=== PATIENT | male | born 1955 | race Caucasian/White ===

== ENCOUNTER → 2016-08-19 | Outpatient (CLI) | payer MEDICARE ==
[~2016-08-19] MED LIST: AMLO10TA2 PO; ASP81CT; ASPI-586 PO; ASPIRIN 325MG; ATOR20TA66 PO; ATOR40TA; ATR20T; CALC-250 PO; CALC-938 PO; DARVOCET N; FEBU40TA PO; FERR-84 PO; FLAX100032 PO; GLBR5T; HCT25T; INSU100I29 SQ; INSU100V SQ; LOTREL 10/40; METO-274 PO; MTF500TCR; NF-LISIN40; NF-MET200T PO; OLME20TA5; TAMS0.4C98 PO; TORS100T4 PO; TRS20T; [UNRECOGNIZED DRUG - OTHER]
--- NOTE | 2016-08-22 08:42 | ECHOCARDIOGRAPHY REPORT ---
PROCEDURE PHYSICIAN: CATHIE HAYS DATE OF PROCEDURE: 08/19/2016 TWO DIMENSIONAL ECHOCARDIOGRAM REPORT PRIMARY PHYSICIAN: OTHER PHYSICIAN: REFERRING PHYSICIAN: Dr. Jackie Bobby ORDERING PHYSICIAN: INDICATION FOR THE PROCEDURE: 1. Coronary artery disease. 2. Hypertension. MEASUREMENTS DERIVED VALUES LV DIAMETER (LAX) NORMALS NORMALS Diastolic 5.5 (3.6-5.2) Eject. Fract. 55% (60%+/-6%) Systolic (2.3-3.9) Diastolic Vol. % Shortening (0.22-0.42) Systolic Vol. Aortic Root IVS THICKNESS Diastolic 1.3 (0.6-1.1) LVPW THICKNESS Diastolic 1.4 (0.6-1.1) LA DIAMETER Systolic 4.3 (2.1-3.7) FINDINGS: 1. Technically difficult study. 2. The left the left ventricle is prominent. Moderate left ventricular hypertrophy was noted diffusely. Endocardium was not well visualized in all segments. Overall systolic function appeared to be preserved with estimated ejection fraction 55%. Diastolic dysfunction is suggested by Doppler. 3. The left atrium is mildly dilated. No clot or thrombus were seen within the left atrium. 4. The right atrium and right ventricle are normal in size. No clot or thrombus were seen within the right side. 5. 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 No mitral valve prolapse. No mitral valve stenosis. 6. Aortic valve leaflets were not well visualized. There is no significant aortic valve stenosis or regurgitation noted. 7. Tricuspid valve is normal in morphology with mild tricuspid regurgitation noted by color Doppler flow. Doppler across tricuspid valve estimated pulmonary artery pressure of 9+ right atrial pressure. 8. Pulmonic valve is functioning normally. 9. No pericardial effusion. IN CONCLUSION: 1. Moderate left ventricular hypertrophy noted diffusely, prominent left ventricle, endocardium was not well visualized in all segments. Overall systolic function appeared to be preserved with estimated ejection fraction 55%. 2. Diastolic dysfunction is suggested by Doppler. 3. Mildly dilated left atrium. 4. Mild mitral regurgitation. Mild tricuspid regurgitation. 5. Estimated pulmonary artery pressure of 15 to 20 mmHg. Job ID: [id number] Dictated Date: 08/21/2016 14:30:33 Bow Maker Production Date: 08/22/2016 08:36:32 / aamir
== END ==
LOC: CARD 13:55
PROVIDERS: ATTEND Physician Assistant
DX: I25.10 Atherosclerotic heart disease of native coronary artery without angina pectoris (principal); I50.30 Unspecified diastolic (congestive) heart failure; I10 Essential (primary) hypertension; E78.2 Mixed hyperlipidemia
CPT/HCPCS: 93306

== ENCOUNTER 2016-09-18 10:30 | Outpatient (CLI) | payer MEDICARE ==
[~2016-09-18] VITALS: Ht 167.6 cm; Wt 133.4 kg
--- OUTSIDE RECORDS SUMMARY | 2016-09-18 10:34 | XMS REPORT | Continuity of Care Document ---
Author Author [facility] Address Unknown Phone Unavailable Allergies Active Description Code Type Severity Reaction Onset Reported/Identified Relationship to Patient Clinical Status Yes Penicillins [id number] Drug Allergy Unknown HIVES 07/11/2008 Yes Penicillins Drug Allergy N/A N/A 10/12/2008 Yes Penicillins Drug Allergy 10/12/2008 Yes Actos Drug Allergy N/A N/A 08/13/2009 Yes Actos Drug Allergy 08/13/2009 Medications Problems Date Dx Coded Attending Type Code Diagnosis Diagnosed By 10/12/2008 ANKIT WEN APRN S 250.00 DIABETES II CONTROLLED 10/12/2008 ANKIT WEN APRN S 272.4 HYPERLIPIDEMIA UNSPECIFIED 10/12/2008 OSWALDO WEN APRNNDA S 285.9 ANEMIA UNSPECIFIED 10/12/2008 ELTON WEN APRNA S 401.1 HYPERTENSION, BENIGN ESSENTIAL 10/12/2008 ELTON WEN APRNA S 782.3 EDEMA 10/12/2008 MICHAEL DO, MARYAM K 250.00 DIABETES II CONTROLLED 10/12/2008 MICHAEL DO, MARYAM K 272.4 HYPERLIPIDEMIA UNSPECIFIED 10/12/2008 MICHAEL DO, MARYAM K 285.9 ANEMIA UNSPECIFIED 10/12/2008 MICHAEL DO, MARYAM K 401.1 HYPERTENSION, BENIGN ESSENTIAL 10/12/2008 MICHAEL DO, MARYAM K 782.3 EDEMA 10/12/2008 RAJOTTE SCREW CUTTER, COLEEN A 250.00 DIABETES II CONTROLLED 10/12/2008 RAJOTTE SCREW CUTTER, COLEEN A 272.4 HYPERLIPIDEMIA UNSPECIFIED 10/12/2008 RAJOTTE SCREW CUTTER, COLEEN A 285.9 ANEMIA UNSPECIFIED 10/12/2008 RAJOTTE SCREW CUTTER, COLEEN A 401.1 HYPERTENSION, BENIGN ESSENTIAL 10/12/2008 RAJOTTE SCREW CUTTER, COLEEN A 782.3 EDEMA 12/26/2008 OSWALDO WEN APRNNDA S 401.9 HYPERTENSION, UNSPECIFIED ESSENTIAL 12/26/2008 LUTHER MICHAEL DOA K 401.9 HYPERTENSION, UNSPECIFIED ESSENTIAL 12/26/2008 MAURICE FIERRO APRNYL A 401.9 HYPERTENSION, UNSPECIFIED ESSENTIAL 08/13/2009 BEHZAD TAN, ANKIT S 274.0 GOUT 08/13/2009 BEHZADHANS TAN, ANKIT S 585.9 KIDNEY DISEASE CHRONIC 08/13/2009 LUTHER MICHAEL DOA K 274.0 GOUT 08/13/2009 LUTHER MICHAEL DOA K 585.9 KIDNEY DISEASE CHRONIC 08/13/2009 MAURICE FIERRO APRNYL A 274.0 GOUT 08/13/2009 VADIM ROUSSEAU, COLEEN A 585.9 KIDNEY DISEASE CHRONIC 08/20/2009 BEHZADHANS TAYandy ANKIT S 250.90 DIABETES MELLITUS TYPE II WITH COMPLICATION 08/20/2009 ALEC WAGONER, MARYAM K 250.90 DIABETES MELLITUS TYPE II WITH COMPLICATION 08/20/2009 VADIM ROUSSEAU, COLEEN A 250.90 DIABETES MELLITUS TYPE II WITH COMPLICATION 05/02/2012 BEHZAD SCREW CUTTEROSWALDO KebedeNDA S V04.81 FLU DX (3 YRS AND ABOVE, IM) 05/02/2012 ALEC WAGONER MARYAM K V04.81 FLU DX (3 YRS AND ABOVE, IM) 05/02/2012 AVDIM ROUSSEAU COLEEN A V04.81 FLU DX (3 YRS AND ABOVE, IM) 06/15/2014 MARYAM MICHAEL DO K V05.8 ZOSTAVAX DX 06/15/2014 VADIM TAYandy COLEEN A V05.8 ZOSTAVAX DX 07/03/2014 VADIM TACOLEEN Kebede A V03.82 PCV-13 (PREVNAR) DX 06/14/2015 Ot 414.00 06/14/2015 Ot 428.0 06/14/2015 Ot 414.00 06/14/2015 Ot 428.0 06/14/2015 TERRENCE CRAWFORD Ot 272.4 06/14/2015 TERRENCE CRAWFORD Ot 401.9 06/14/2015 TERRENCE CRAWFORD Ot 414.01 06/14/2015 TERRENCE CRAWFORD Ot 250.00 06/14/2015 TERRENCE CRAWFORD Ot 272.4 06/14/2015 TERRENCE CRAWFORD Ot 278.01 06/14/2015 TERRENCE CRAWFORD Ot 327.23 06/14/2015 TERRENCE CRAWFORD Ot 401.9 06/14/2015 TERRENCE CRAWFORD Ot 414.00 06/14/2015 TERRENCE CRAWFORD Ot 424.0 06/14/2015 MARY BURR, MARK Duron Ot Z01.818 06/14/2015 MARY BURR, MARK Duron Ot Z12.11 06/14/2015 MARY BURR, MARK Duron Ot Z80.0 06/14/2015 MARY BURR, MARK Duron Ot D12.3 BENIGN NEOPLASM OF TRANSVERSE COLON 06/14/2015 MARY BURR, MARK Duron Ot I12.0 HYP CHR KIDNEY DISEASE W STAGE 5 CHR KID 06/14/2015 MARY BURR, MARK Duron Ot K57.92 DVTRCLI OF INTEST, PART UNSP, W/O PERF O 06/14/2015 MARY BURR, MARK Duron Ot N18.5 CHRONIC KIDNEY DISEASE, STAGE 5 06/14/2015 MARY BURR, MARK Duron Ot Z12.11 ENCOUNTER FOR SCREENING FOR MALIGNANT NE 06/14/2015 MARY BURR, MARK Duron Ot Z80.0 FAMILY HISTORY OF MALIGNANT NEOPLASM OF 07/29/2016 TERRENCE CRAWFORD Ot 272.4 HYPERLIPIDEMIA NEC/NOS 07/29/2016 TERRENCE CRAWFORD Ot 401.9 HYPERTENSION NOS 07/29/2016 TERRENCE CRAWFORD Ot 414.01 CORONARY ATHEROSCLEROSIS OF [place] CORON 07/29/2016 TERRENCE CRAWFORD Ot 250.00 DIAB FLY WO COMPL, TYPE II OR UNSPEC TY 07/29/2016 TERRENCE CRAWFORD Ot 272.4 HYPERLIPIDEMIA NEC/NOS 07/29/2016 TERRENCE CRAWFORD Ot 278.01 MORBID OBESITY 07/29/2016 TERRENCE CRAWFORD Ot 327.23 OBSTRUCTIVE SLEEP APNEA (ADULT ) (PEDIATR 07/29/2016 TERRENCE CRAWFORD Ot 401.9 HYPERTENSION NOS 07/29/2016 TERRENCE CRAWFORD Ot 414.00 CORON ATHEROSCLER NOS TYPE VESSEL, NATIV 07/29/2016 TERRENCE CRAWFORD Ot 424.0 MITRAL VALVE DISORDER 07/29/2016 MARK HERNANDEZ MD Ot Z01.818 ENCOUNTER FOR OTHER PREPROCEDURAL EXAMIN 07/29/2016 MARK HERNANDEZ MD Ot Z12.11 ENCOUNTER FOR SCREENING FOR MALIGNANT NE 07/29/2016 MARK HERNANDEZ MD Ot Z80.0 FAMILY HISTORY OF MALIGNANT NEOPLASM OF 07/31/2016 BENNY NORMAN MD Ot M53.3 SACROCOCCYGEAL DISORDERS, NOT ELSEWHERE 08/20/2016 TERRENCE CRAWFORD Ot E78.2 MIXED HYPERLIPIDEMIA 08/20/2016 TERRENCE CRAWFORD Ot I10 ESSENTIAL (PRIMARY) HYPERTENSION 08/20/2016 TERRENCE CRAWFORD Ot I25.10 ATHSCL HEART DISEASE OF [place] CORONARY 08/20/2016 TERRENCE CRAWFORD Ot I50.30 UNSPECIFIED DIASTOLIC ( CONGESTIVE) HEART 09/11/2016 TERRENCE CRAWFORD Ot E78.2 MIXED HYPERLIPIDEMIA 09/11/2016 TERRENCE CRAWFORD Ot I10 ESSENTIAL (PRIMARY) HYPERTENSION 09/11/2016 TERRENCE CRAWFORD Ot I25.10 ATHSCL HEART DISEASE OF [place] CORONARY 09/11/2016 TERRENCE CRAWFORD Ot I50.30 UNSPECIFIED DIASTOLIC ( CONGESTIVE) HEART 09/16/2016 TERRENCE CRAWFORD Ot E78.2 MIXED HYPERLIPIDEMIA 09/16/2016 TERRENCE CRAWFORD Ot I10 ESSENTIAL (PRIMARY) HYPERTENSION 09/16/2016 TERRENCE CRAWFORD Ot I25.10 ATHSCL HEART DISEASE OF [place] CORONARY 09/16/2016 TERRENCE CRAWFORD Ot I50.30 UNSPECIFIED DIASTOLIC ( CONGESTIVE) HEART Procedures Results Encounters ACCT No. Visit Date/Time Discharge Status Pt. Type Provider Facility Loc./Unit Complaint [id number] 07/03/2014 13:48:00 07/03/2014 23: 59:59 CLS Outpatient COLEEN FIERRO APRN [id number] 06/15/2014 11:17:00 06/15/2014 23: 59:59 CLS Outpatient MARYAM MICHAEL DO [id number] 05/02/2012 17:01:00 05/02/2012 23: 59:59 CLS Outpatient ANKIT WEN APRN
[2016-09-18] MEDS ORDERED: BUPIVACAINE 0.5% 30 ML (SENSORCAINE) VIAL ONE (10:51)
[2016-09-18] MEDS ORDERED: LIDOCAINE 1% INJ 20 ML (XYLOCAINE) VIAL ONE (10:51)
[2016-09-18] MEDS ORDERED: TRIAMCINOLONE ACET (KENALOG-40) 40 MG/ML 1 ML VIAL ONE (10:51)
[2016-09-18 10:54] VITALS: BP 139/80
[2016-09-18 11:37] VITALS: BP 154/100
--- NOTE | 2016-09-18 14:17 | Pain Medicine-Procedure ---
Procedure Pre-Op/Post-Op Diagnosis Diagnosis: spondylosis without myelopathy, lumbar Indications for Operation Low back pain Attending Surgeon Malia Procedure Date of Service: Sep 18, 2016 PROCEDURE: Bilateral lumbar medial branch block at L3,L4, L5 and sacral ala under fluoroscopic guidance. PROCEDURE DETAILS: After obtaining an informed consent from the patient, the patient's chart was reviewed. The patient was brought to the procedure room and placed in a prone position. The back was prepped with antiseptic solution, and under fluoroscopic guidance the sacral ala was identified bilaterally. 0.5 cc of 1% Lidocaine to anesthetize the skin. Two 22 gauge 3.5 inch spinal needles were inserted under fluoroscopic guidance until it got in touch with the bone at the sacral ala bilaterally. Then under right oblique fluoroscopy, the junction of the superior articular process and transverse process on the right at L3, L4, and L5 was identified. 0.5 cc of 1% Lidocaine was used to anesthetize the skin. A 22 gauge 3.5 inch spinal needle was inserted through the skin under fluoroscopic guidance until it came in touch with the bone at the junction between the superior articular process and transverse process at each level. The exact steps were repeated for the left side. After needle aspiration,80 mg of kenalog total was injected in equal alliquots followed by 0.5 cc of 0.5% bupivacaine at each. The patient tolerated the procedure well. The needles were flushed and removed, and a Band-Aide was applied. Complications None BENNY NORMAN MD Sep 18, 2016 2:17 pm
== END 2016-09-18 11:38 | disposition home or self-care (01) ==
LOC: CARD 10:30
PROVIDERS: ATTEND Pain Medicine Pain Medicine
DX: M47.816 Spondylosis without myelopathy or radiculopathy, lumbar region (principal); M53.3 Sacrococcygeal disorders, not elsewhere classified
CPT/HCPCS: 64493; 64494; 64495

== ENCOUNTER 2016-10-02 11:01 | Outpatient (CLI) | payer MEDICARE ==
[~2016-10-02] VITALS: Ht 167.6 cm; Wt 134.3 kg
--- OUTSIDE RECORDS SUMMARY | 2016-10-02 11:05 | XMS REPORT | Continuity of Care Document ---
Author Author [facility] Address Unknown Phone Unavailable Allergies Active Description Code Type Severity Reaction Onset Reported/Identified Relationship to Patient Clinical Status Yes Penicillins [id number] Drug Allergy Unknown HIVES 07/11/2008 Yes Penicillins [...] DO, MARYAM K 782.3 EDEMA 10/12/2008 RAJOTTE VP PUBLIC RELATIONS, COLEEN A 250.00 DIABETES II CONTROLLED 10/12/2008 RAJOTTE VP PUBLIC RELATIONS, COLEEN A 272.4 HYPERLIPIDEMIA UNSPECIFIED 10/12/2008 RAJOTTE VP PUBLIC RELATIONS, COLEEN A 285.9 ANEMIA UNSPECIFIED 10/12/2008 RAJOTTE VP PUBLIC RELATIONS, COLEEN A 401.1 HYPERTENSION, BENIGN ESSENTIAL 10/12/2008 RAJOTTE VP PUBLIC RELATIONS, COLEEN A 782.3 EDEMA 12/26/2008 OSWALDO WEN [...] MELLITUS TYPE II WITH COMPLICATION 05/02/2012 BEHZAD VP PUBLIC RELATIONSOSWALDO KebedeNDA S V04.81 FLU DX (3 YRS AND ABOVE, IM) 05/02/2012 ALEC WAGONER MARYAM K V04.81 FLU DX (3 YRS AND ABOVE, IM) 05/02/2012 VADIM ROUSSEAU COLEEN A V04.81 FLU DX (3 [...] 250.00 06/14/2015 TERRENCE CRAWFORD Ot 272.4 06/14/2015 TERERNCE CRAWFORD Ot 278.01 06/14/2015 TERRENCE CRAWFORD Ot [...] TERRENCE CRAWFORD Ot 414.01 CORONARY ATHEROSCLEROSIS OF [place] CORON 07/29/2016 TERRENCE CRAWFORD Ot 250.00 DIAB [...] CRAWFORD Ot I25.10 ATHSCL HEART DISEASE OF [place] CORONARY 08/20/2016 TERRENCE CRAWFORD Ot I50.30 UNSPECIFIED DIASTOLIC ( CONGESTIVE) HEART 09/11/2016 TERRENCE CRAWFORD Ot E78.2 MIXED HYPERLIPIDEMIA 09/11/2016 TERRENCE CRAWFORD Ot I10 ESSENTIAL (PRIMARY) HYPERTENSION 09/11/2016 TERRENCE CRAWFORD Ot I25.10 ATHSCL HEART DISEASE OF [place] CORONARY 09/11/2016 TERRENCE CRAWFORD Ot I50.30 UNSPECIFIED DIASTOLIC ( CONGESTIVE) HEART 09/16/2016 TERRENCE CRAWFORD Ot E78.2 MIXED HYPERLIPIDEMIA 09/16/2016 TERRENCE CRAWFORD Ot I10 ESSENTIAL (PRIMARY) HYPERTENSION 09/16/2016 TERRENCE CRAWFORD Ot I25.10 ATHSCL HEART DISEASE OF [place] CORONARY 09/16/2016 TERRENCE CRAWFORD Ot I50.30 UNSPECIFIED DIASTOLIC ( CONGESTIVE) HEART Procedures Results Encounters ACCT No. Visit Date/Time Discharge Status Pt. Type Provider Facility Loc./Unit Complaint [id number] 07/03/2014 13:48:00 07/03/2014 23: 59:59 CLS Outpatient COLEEN FIERRO APRN [id number] 06/15/2014 11:17:00 06/15/2014 23: 59:59 CLS Outpatient MARYAM MICHAEL DO [id number] 05/02/2012 17:01:00 05/02/2012 23: 59:59 CLS Outpatient ANKIT WEN APRN
[2016-10-02] MEDS ORDERED: LIDOCAINE 1% INJ 20 ML (XYLOCAINE) VIAL ONE (11:07)
[2016-10-02] MEDS ORDERED: TRIAMCINOLONE ACET (KENALOG-40) 40 MG/ML 1 ML VIAL ONE (11:07)
[2016-10-02] MEDS ORDERED: BUPIVACAINE 0.25% 30 ML (SENSORCAINE) VIAL ONE (11:07)
[2016-10-02 11:16] VITALS: BP 109/63
[2016-10-02 11:57] VITALS: BP 121/68
--- NOTE | 2016-10-02 14:53 | Pain Medicine-Procedure ---
Procedure Pre-Op/Post-Op Diagnosis Diagnosis: sacrococcygeal disorder Indications for Operation hip pain Attending Surgeon Malia Procedure Date of Service: Oct 02, 2016 Procedure: Flouroscopic guided bilateral sacroiliac joint injection PROCEDURE IN DETAIL: After obtaining informed consent from the patient, the patient's chart was reviewed. The patient was then brought to the procedure room and placed in the prone position. A time out was performed. The back was prepped with antiseptic solution and under fluoroscopic guidance the patient's sacroiliac joint on both sides was identified. Attention was first turned to the right sacroiliac joint injection where 2 mL's of 1% lidocaine was used to anesthetize the skin and then two 22-gauge 3.5 inch spinal needles were inserted and advanced under flouroscopic guidance until they were in the lower 1 /3 of the right sacroiliac joint. Next, attention was then turned to the left sacroiliac joint injection where 2 mL's of 1% lidocaine was used to anesthetize the skin and then two 22-gauge 3.5 inch spinal needles were inserted and advance under flouroscopic guidance until they were in the lower 1/3 of the sacroiliac joint on the left side. After negative aspiration, each needle was injected with 40 mg of Kenalog along with 2 mL's of 0.25% marcaine. All needles were then flushed with 1% lidocaine and then removed. Band-Aids were applied to all the sites and the patient tolerated the procedure well and was taken to the recovery area in stable condition. Complications none BENNY NORMAN MD Oct 02, 2016 2:53 pm
== END 2016-10-02 11:58 | disposition home or self-care (01) ==
LOC: CARD 11:01
PROVIDERS: ATTEND Pain Medicine Pain Medicine
DX: M53.3 Sacrococcygeal disorders, not elsewhere classified (principal); M47.816 Spondylosis without myelopathy or radiculopathy, lumbar region; Z79.899 Other long term (current) drug therapy
CPT/HCPCS: 27096

== ENCOUNTER 2016-12-18 10:44 | Outpatient (CLI) | payer MEDICARE ==
[~2016-12-18] VITALS: Ht 167.6 cm; Wt 132.9 kg
[2016-12-18] MEDS ORDERED: LIDOCAINE 1% INJ 20 ML (XYLOCAINE) VIAL ONE (10:54)
[2016-12-18] MEDS ORDERED: TRIAMCINOLONE ACET (KENALOG-40) 40 MG/ML 1 ML VIAL ONE (10:54)
[2016-12-18] MEDS ORDERED: BUPIVACAINE 0.25% 30 ML (SENSORCAINE) VIAL ONE (10:54)
[2016-12-18 11:04] VITALS: BP 113/78
[2016-12-18 11:34] VITALS: BP 94/53
--- NOTE | 2016-12-18 12:32 | Pain Medicine-Procedure ---
Procedure Pre-Op/Post-Op Diagnosis Diagnosis: sacrococcygeal disorder Indications for Operation hip pain Attending Surgeon Malia Procedure Date of Service: December 18, 2016 Procedure: Flouroscopic guided bilateral sacroiliac joint injection PROCEDURE IN DETAIL: After obtaining informed consent from the patient, the patient's chart was reviewed. The patient was then brought to the procedure room and placed in the prone position. A time out was performed. The back was prepped with antiseptic solution and under fluoroscopic guidance the patient's sacroiliac joint on both sides was identified. Attention was first turned to the right sacroiliac joint injection where 2 mL's of 1% lidocaine was used to anesthetize the skin and then two 22-gauge 3.5 inch spinal needles were inserted and advanced under flouroscopic guidance until they were in the lower 1 /3 of the right sacroiliac joint. Next, attention was then turned to the left sacroiliac joint injection where 2 mL's of 1% lidocaine was used to anesthetize the skin and then two 22-gauge 3.5 inch spinal needles were inserted and advance under flouroscopic guidance until they were in the lower 1/3 of the sacroiliac joint on the left side. After negative aspiration, each needle was injected with 40 mg of Kenalog along with 2 mL's of 0.25% marcaine. All needles were then flushed with 1% lidocaine and then removed. Band-Aids were applied to all the sites and the patient tolerated the procedure well and was taken to the recovery area in stable condition. Complications None EBNNY NORMAN MD December 18, 2016 12:32 pm
== END 2016-12-18 11:45 ==
LOC: CARD 10:44
PROVIDERS: ATTEND Pain Medicine Pain Medicine
DX: M53.3 Sacrococcygeal disorders, not elsewhere classified (principal); M47.816 Spondylosis without myelopathy or radiculopathy, lumbar region; Z79.4 Long term (current) use of insulin; Z79.899 Other long term (current) drug therapy
CPT/HCPCS: 27096

== ENCOUNTER 2017-05-28 21:00 | Outpatient (CLI) | payer MEDICARE | END 2017-05-29 04:00 | disposition home or self-care (01) | LOC: SLEEP 21:00 | PROVIDERS: ATTEND Nurse Practitioner Community Health | DX: G47.33 Obstructive sleep apnea (adult) (pediatric) (principal); G47.61 Periodic limb movement disorder | CPT/HCPCS: 95811 ==

== ENCOUNTER → 2017-07-01 | Outpatient (CLI) | payer MEDICARE ==
[~2017-07-01] VITALS: Ht 167.6 cm; Wt 132.9 kg
[~2017-07-01] MED LIST changes: -METO-274 PO; +METO-395 PO; +methylPREDNISolone 80 MG/ML (DEPO MEDROL) VIAL ONE
== END ==
LOC: CARD 14:29
PROVIDERS: ATTEND Pain Medicine Interventional Pain Medicine
DX: M46.1 Sacroiliitis, not elsewhere classified (principal)
CPT/HCPCS: 27096

== ENCOUNTER → 2017-07-29 | Outpatient (CLI) | payer MEDICARE ==
[~2017-07-29] VITALS: Ht 167.6 cm; Wt 132.9 kg
[2017-07-29 12:42] VITALS: BP 190/90
[2017-07-29 13:45] VITALS: BP 177/79
--- NOTE | 2017-07-31 03:50 | OPERATIVE REPORT ---
DATE OF SERVICE: 07/29/2017 DIAGNOSIS: Lumbar radiculopathy. PROCEDURE: Fluoroscopic guided interlaminar epidural steroid injection. PROCEDURE IN DETAIL: After obtaining informed consent from the patient, the patient's chart was reviewed. The patient was then brought to the procedure room and placed in the prone position. A timeout was performed. The back was prepped with antiseptic solution and under fluoro guidance, the patient's lumbar spine was identified at the level of L4-L5. The L4-L5 vertebra was identified with fluoro guidance and approximately 2 mL of 1.5% lidocaine solution was used to anesthetize the skin directly down to the pedicle of the L4-L5 and under fluoroscopic guidance, the tract was anesthetized up to the interlaminar space and the ligamentum flavum. This needle was withdrawn. Then, a 20-gauge 3.5 inch Tuohy needle was then directed following the same tract that was anesthetized with the spinal needle. Using loss of resistance, the epidural space was identified and then the syringe was switched for contrast solution which was injected, approximately 1 mL. After secondary confirmation of epidural access, another syringe was placed and 80 mg of Depo-Medrol was injected. The Tuohy needle was then flushed out with approximately 2 mL of the normal saline used from the loss of resistance syringe. Band-Aids were applied to all the procedure sites. The patient tolerated the procedure well and was taken to the recovery room in stable condition. COMPLICATIONS: None. Job ID: [id number] DocumentID: [id number] Dictated Date: 07/30/2017 19:02:06 Bookbinding Machine Operator Date: 07/31/2017 03:49:20 Dictated By: SEBASTIEN GARCÍA DO
== END ==
LOC: CARD 12:12
PROVIDERS: ATTEND Pain Medicine Interventional Pain Medicine
DX: M54.16 Radiculopathy, lumbar region (principal)
CPT/HCPCS: 62323

== ENCOUNTER 2017-09-23 14:12 | Outpatient (CLI) | payer MEDICARE ==
[~2017-09-23] VITALS: Ht 167.6 cm; Wt 127.0 kg
[~2017-09-23 14:12] MED LIST changes: -methylPREDNISolone 80 MG/ML (DEPO MEDROL) VIAL ONE
[2017-09-23] MEDS ORDERED: methylPREDNISolone 80 MG/ML (DEPO MEDROL) VIAL ONE (14:24)
[2017-09-23 14:41] VITALS: BP 156/75
[2017-09-23 14:58] VITALS: BP 150/77
== END 2017-09-23 15:00 ==
LOC: CARD 14:12
PROVIDERS: ATTEND Pain Medicine Interventional Pain Medicine
DX: M54.16 Radiculopathy, lumbar region (principal)
CPT/HCPCS: 62323

== ENCOUNTER → 2017-12-16 | Outpatient (CLI) | payer MEDICARE ==
[~2017-12-16] VITALS: Ht 167.6 cm; Wt 127.0 kg
[~2017-12-16] MED LIST changes: +methylPREDNISolone 80 MG/ML (DEPO MEDROL) VIAL ONE
[2017-12-16 12:57] VITALS: BP 135/66
[2017-12-16 13:22] VITALS: BP 140/77
--- NOTE | 2017-12-16 16:50 | OPERATIVE REPORT ---
DATE OF SERVICE: 12/16/2017 DIAGNOSIS: Sacroiliitis. PROCEDURE: Fluoroscopic guided bilateral sacroiliac joint injection. PROCEDURE IN DETAIL: After obtaining informed consent from the patient, the patient's chart was reviewed. The patient was then brought to the procedure room, placed in prone position, a timeout was performed. The patient's back was prepped with antiseptic solution. Under fluoroscopic guidance, the patient's sacroiliac joint on the bilateral side was identified. Bilateral sacroiliac joint was identified with fluoroscopic guidance and approximately 2 mL of 1.5% lidocaine was used to anesthetize the skin with a 22-gauge 3-1/2 inch spinal needle. This same spinal needle was then advanced under fluoroscopic guidance until it was placed at the inferior third of the SI joint on the bilateral side. After negative aspiration, the solution was injected through the spinal needle. The solution was 80 mg of Depo-Medrol. After steroid was injected, then flushed out the needle with lidocaine used for prep and the needle was then removed. Bandages were applied to all sites. The patient tolerated the procedure well and was taken to recovery area in stable condition. No complications noted. Job ID: [id number] DocumentID: [id number] Dictated Date: 12/16/2017 13:23:36 Pump House Technician Date: 12/16/2017 16:49:22 Dictated By: SEBASTIEN GARCÍA DO
== END ==
LOC: CARD 12:15
PROVIDERS: ATTEND Pain Medicine Interventional Pain Medicine
DX: M46.1 Sacroiliitis, not elsewhere classified (principal)
CPT/HCPCS: 27096